=== PATIENT | male | born 1995 | race Two or more races ===

== ENCOUNTER 2019-05-19 23:17 | Emergency (ER) | payer MEDICAID ==
[~2019-05-19] VITALS: Ht 172.7 cm; Wt 80.8 kg
[2019-05-19] MEDS ORDERED: LORazepam 1MG TABLET PO ONE (23:30)
[2019-05-19] MEDS ORDERED: OLANZAPINE 5 MG TABLET PO ONE (23:30)
[2019-05-19] MEDS ORDERED: OLANZAPINE 5 MG TABLET ONE (23:37)
[2019-05-19] MEDS ORDERED: LORazepam 1MG TABLET ONE (23:37)
--- NOTE | 2019-05-19 23:50 | NUR ---
PT HERE FOR PSYCH RESOURCES AND MEDICATION. PT DENIES HI/SI AT THIS TIME. VSS. PT MEDICATED AND GIVEN WATER. UA WALKED TO LAB. SITTER IN VIEW OF PT.
[2019-05-20 00:05] LABS: AMPHETAMINE SCREEN, URINE Negative (Negative); BARBITURATE SCREEN, URINE Negative (Negative); BENZODIAZEPINE SCREEN, URINE Negative (Negative); CANNABINOID SCREEN, URINE Positive (Negative); COCAINE SCREEN, URINE Negative (Negative); METHADONE SCREEN, URINE Negative (Negative); OPIATE SCREEN, URINE Negative (Negative)
--- NOTE | 2019-05-20 00:25 | NUR ---
Patient given discharge instructions and they have confirmed that they understand the instructions. Patient ambulatory with steady gait.
[2019-05-20 00:26] VITALS: BP 130/78
[2019-05-20] MEDS ORDERED: GUAIFENESIN/DM 200-20MG, 10ML UDC PO PRN (00:30)
== END 2019-05-20 00:28 | disposition home or self-care (01) ==
LOC: ED 23:54
DX: F31.9 Bipolar disorder, unspecified (principal); F15.10 Other stimulant abuse, uncomplicated; F17.200 Nicotine dependence, unspecified, uncomplicated
CPT/HCPCS: 80307; 99284